=== PATIENT | male | born 1950 | race Caucasian/White ===

== ENCOUNTER → 2025-01-19 | Outpatient (CLI) | payer MEDICARE, SELFPAY ==
[2025-01-19 16:18] LABS: Cholesterol 186 mg/dL (<=200); Low Density Lipoprotein Calc. 99 mg/dL; Magnesium 1.9 mg/dL (1.5-2.2); Triglycerides 93 mg/dL; Very Low Density Lipoprotein 19 mg/dL (5-40); Vitamin B12 353 pg/mL (180-914); cholesterol:hdl ratio screen 2.70
[2025-01-23 12:09] LABS: ANTINUCLEAR ANTIBODIES DIRECT Positive (Negative); Anti-Chromatin <0.2 AI (0.0-0.9); Anti-Jo <0.2 AI (0.0-0.9); Anti-dsDNA Ab <1 IU/mL (0-9); SJOGREN'S Anti-SS-A test 0.2 AI (0.0-0.9); SJOGREN'S Anti-SS-B test 1.1 AI (0.0-0.9); Vitamin D 1,25-Dihydroxy 43.3 pg/mL (24.8-81.5)
[2025-01-26 13:08] LABS: Arsenic 7245 < 1 ug/L (0-9); Folate, Hemolysate Test 585.0 ng/mL (Not Estab.); Folate, RBC (Hct) Test 45.2 % (37.5-51.0); Folates, RBC Test 1294 ng/mL (>498); Lead, Blood 2.2 ug/dL (0.0-3.4); Mercury, Blood 85324 4.0 ug/L (0.0-14.9); VITAMIN B6 52.8 ug/L (3.4-65.2); Vitamin B1, Thiamine 128.8 nmol/L (66.5-200.0)
== END | disposition home or self-care (01) ==
LOC: MTLAB 11:21
PROVIDERS: PCP Family Medicine; Referring Provider Psychiatry & Neurology Neurology; Visit Provider Psychiatry & Neurology Neurology
DX: G62.9 Polyneuropathy, unspecified (principal); E78.5 Hyperlipidemia, unspecified
CPT/HCPCS: 36415; 80061; 82175; 82607; 82652; 82747; 83036; 83655; 83735; 83825; 83883; 84207; 84425; 85014; 86038; 86225; 86235

== ENCOUNTER → 2025-01-21 | Outpatient (CLI) | payer MEDICARE, SELFPAY ==
--- NOTE | 2025-01-21 12:28 | NEURO ---
NCS and/or EMG Patient Report Ordering Doctor: Cayden Flores DATE OF SERVICE: 01/21/25 Jose lower legs. He also reports weakness, primarily in dorsiflexion at the ankle bilaterally. Electrodiagnostic findings: Right peroneal and left peroneal motor nerve was not obtainable at the EDB. At the tibialis anterior, the right peroneal motor nerve demonstrates reduced amplitude bilaterally. Normal tibial motor response bilaterally. Sensory responses demonstrate a mild prolongation of the left sural nerve. H?reflexes prolonged bilaterally. Normal right tibial and left tibial F wave. Needle EMG testing was performed the lower limbs. Decreased recruitment pattern noted in the right tibialis anterior. 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 2. No electrodiagnostic evidence is noted for lumbosacral radiculopathy Multi Select Codes Neurology Neurology Interp Codes: 59756-89 Musc test done w/n test comp (interp) (2) and 17359-10 Nrv cndj test 11-12 studies (interp)
== END | disposition home or self-care (01) ==
LOC: PSN 08:18
PROVIDERS: PCP Family Medicine; Referring Provider Psychiatry & Neurology Neurology; Visit Provider Psychiatry & Neurology Neurology
DX: R29.898 Other symptoms and signs involving the musculoskeletal system (principal); R26.9 Unspecified abnormalities of gait and mobility; G62.9 Polyneuropathy, unspecified; M54.50 Low back pain, unspecified; M54.16 Radiculopathy, lumbar region
CPT/HCPCS: 95886; 95912

== ENCOUNTER → 2025-01-28 | Outpatient (CLI) | payer MEDICARE, SELFPAY ==
--- NOTE | 2025-01-28 15:20 | MRI_ITS ---
PROCEDURE: SPINE CERVICAL (ROUTINE) 01/28/2025 REASON FOR EXAM: ASSESS FOR CERVICAL MYELOPATHY AND RADICULOPATHY TECHNIQUE: Procedure Code: MRISP Modality: MR Procedure: SPINE CERVICAL (ROUTINE) Multiplanar and multisequence images were obtained without IV contrast administration. FINDINGS: Normal cervical vertebral body height. Subtle degenerative subluxation of C7 upon T1. There is no compression fracture. Degenerative marrow changes are present at C5-6. There is no Chiari deformity. At C2-3, there is no central or foraminal encroachment. At C3-4, severe right C4 foraminal stenosis from uncinate spurring with mild central canal narrowing. At C4-5 [id number] canal narrowing from disc osteophyte complex. Bilateral moderate foraminal stenosis worse on the right than the left from uncinate spur. At C5-6 [id number]-[id number] canal narrowing from disc osteophyte complex with severe bilateral C6 neural foraminal narrowing. At C6-7 mild canal narrowing and mild foraminal narrowing. At C7-T1 there is facet arthrosis with grade 1 subluxation. There is no cord compression or abnormal cord signal MRI/Spine Cervical (Routine) IMPRESSION: 1. Jvjh-nj-wytofpol canal narrowing at C4-5 and C5-6. 2. Severe right C4, bilateral moderate C5, severe bilateral C6 foraminal stenos is Reading [facility]
--- NOTE | 2025-01-28 15:20 | MRI_ITS ---
PROCEDURE: SPINE CERVICAL (ROUTINE) 01/28/2025 REASON FOR EXAM: ASSESS FOR CERVICAL MYELOPATHY AND RADICULOPATHY TECHNIQUE: Procedure Code: MRISP Modality: MR Procedure: SPINE CERVICAL (ROUTINE) Multiplanar and multisequence images were obtained without IV contrast administration. FINDINGS: Normal cervical vertebral body height. Subtle degenerative subluxation of C7 upon T1. There is no compression fracture. Degenerative marrow changes are present at C5-6. There is no Chiari deformity. At C2-3, there is no central or foraminal encroachment. At C3-4, severe right C4 foraminal stenosis from uncinate spurring with mild central canal narrowing. At C4-5 [id number]-[id number]-[id number] canal narrowing from disc osteophyte complex. Bilateral moderate foraminal stenosis worse on the right than the left from uncinate spur. At C5-6 fwdd-wr-[id number] canal narrowing from disc osteophyte complex with severe bilateral C6 neural foraminal narrowing. At C6-7 mild canal narrowing and mild foraminal narrowing. At C7-T1 there is facet arthrosis with grade 1 subluxation. There is no cord compression or abnormal cord signal MRI/Spine Cervical (Routine) IMPRESSION: 1. Lopk-jk-ccnfsvxo canal narrowing at C4-5 and C5-6. 2. Severe right C4, bilateral moderate C5, severe bilateral C6 foraminal stenos is Reading Location[facility]
--- NOTE | 2025-01-28 16:00 | MRI_ITS ---
PROCEDURE: SPINE LUMBAR (ROUTINE) 01/28/2025 REASON FOR EXAM: EVALUATE FOR SPINAL STENOSIS AND RADICULOPATHY TECHNIQUE: Procedure Code: MRISPL Modality: MR Procedure: SPINE LUMBAR (ROUTINE) COMPARISON: None. FINDINGS: Vertebrae: Preserved in height and signal. Alignment: Retrolisthesis L1 on L2 by 2 mm and L2 on L3 by 3 mm. Conus Medullaris: Unremarkable. L1-2: Disc desiccation. Disc bulge. Left frontal disc herniation measures 4 mm. Facet joint arthropathy with fluid effusion. Moderate bilateral foramina stenosis. Moderate canal stenosis. L2-3: Disc desiccation. Disc bulge. Facet joint arthropathy. Severe canal stenosis. Moderate bilateral foramina stenosis. L3-4: Disc bulge. Facet joint arthropathy. Ligamentum flavum hypertrophy. Mild bilateral foramina stenosis. Severe canal stenosis. L4-5: Disc bulge. Facet joint arthropathy. Ligamentum flavum hypertrophy. Severe canal stenosis. Moderate bilateral foramina stenosis. L5-S1: Disc desiccation. Disc bulge. Facet joints arthropathy. Severe bilateral foramina stenosis. Mass-effect upon the exiting bilateral L5 nerves. Mild canal stenosis. Sacrum: Unremarkable. MRI/Spine Lumbar (Routine) IMPRESSION: Multilevel degenerate changes predominantly for severe canal stenosis at L3-L4 and L4-L5. Severe bilateral foramina stenosis at L5-S1 with mass effect upon the exiting b ilateral L5 nerves. Reading Location: [facility]
--- NOTE | 2025-01-28 16:00 | MRI_ITS ---
PROCEDURE: SPINE LUMBAR (ROUTINE) 01/28/2025 REASON FOR EXAM: EVALUATE FOR SPINAL STENOSIS AND RADICULOPATHY TECHNIQUE: Procedure Code: MRISPL Modality: MR Procedure: SPINE LUMBAR (ROUTINE) COMPARISON: None. FINDINGS: Vertebrae: Preserved in height and signal. Alignment: Retrolisthesis L1 on L2 by 2 mm and L2 on L3 by 3 mm. Conus Medullaris: Unremarkable. L1-2: Disc desiccation. Disc bulge. Left frontal disc herniation measures 4 mm. Facet joint arthropathy with fluid effusion. Moderate bilateral foramina stenosis. Moderate canal stenosis. L2-3: Disc desiccation. Disc bulge. Facet joint arthropathy. Severe canal stenosis. Moderate bilateral foramina stenosis. L3-4: Disc bulge. Facet joint arthropathy. Ligamentum flavum hypertrophy. Mild bilateral foramina stenosis. Severe canal stenosis. L4-5: Disc bulge. Facet joint arthropathy. Ligamentum flavum hypertrophy. Severe canal stenosis. Moderate bilateral foramina stenosis. L5-S1: Disc desiccation. Disc bulge. Facet joints arthropathy. Severe bilateral foramina stenosis. Mass-effect upon the exiting bilateral L5 nerves. Mild canal stenosis. Sacrum: Unremarkable. MRI/Spine Lumbar (Routine) IMPRESSION: Multilevel degenerate changes predominantly for severe canal stenosis at L3-L4 and L4-L5. Severe bilateral foramina stenosis at L5-S1 with mass effect upon the exiting b ilateral L5 nerves. Reading Location[facility]
== END | disposition home or self-care (01) ==
LOC: MRI 14:56
PROVIDERS: PCP Family Medicine; Referring Provider Psychiatry & Neurology Neurology; Visit Provider Psychiatry & Neurology Neurology
DX: R20.2 Paresthesia of skin (principal); R26.9 Unspecified abnormalities of gait and mobility; R29.898 Other symptoms and signs involving the musculoskeletal system; M54.16 Radiculopathy, lumbar region; M54.50 Low back pain, unspecified
CPT/HCPCS: 72141; 72148

== ENCOUNTER → 2025-02-11 | Outpatient (CLI) | payer MEDICARE, SELFPAY ==
--- NOTE | 2025-02-11 14:21 | NEURO ---
NCS and/or EMG Patient Report Ordering Doctor: Cayden Flores DATE OF SERVICE: 02/11/25 Jose presents with complaints of numbness and tingling in both hands. Electrodiagnostic findings: Right median motor nerve demonstrates prolonged distal latency with normal amplitude and conduction velocity. Left median motor nerve demonstrates prolonged distal latency with normal amplitude and borderline reduced conduction velocity. Right ulnar motor nerve demonstrates normal distal latency and amplitude and reduced conduction velocity across the elbow when measured at the FDI and ADM. Left ulnar motor response measured at the FDI shows normal distal latency, amplitude and conduction velocity. Prolonged right ulnar F–wave. Needle EMG testing was performed upper limbs. All muscles tested showed no evidence of denervation with normal motor unit action potentials. Electrodiagnostic impression: This is an abnormal study. 1. Electrodiagnostic findings suggestive of bilateral median mononeuropathy. This is consistent with a mild right carpal tunnel syndrome and a moderate left carpal tunnel syndrome. 2. Electrodiagnostic findings suggestive of right sided ulnar neuropathy, consistent with a moderate right cubital tunnel syndrome. 3. No electrodiagnostic evidence is noted for cervical radiculopathy Multi Select Codes Neurology Neurology Interp Codes: 57474-28 Musc test done w/n test comp (interp) (2) and 82196-48 Nrv cndj test 11-12 studies (interp)
== END | disposition home or self-care (01) ==
LOC: PSN 07:06
PROVIDERS: PCP Family Medicine; Referring Provider Psychiatry & Neurology Neurology; Visit Provider Psychiatry & Neurology Neurology
DX: R20.2 Paresthesia of skin (principal)
CPT/HCPCS: 95886; 95913

== ENCOUNTER → 2025-03-17 | Outpatient (CLI) | payer MEDICARE, SELFPAY ==
[2025-03-19 16:09] LABS: Albumin 3.6 g/dL (2.9-4.4); Gamma Globulin 1.0 g/dL (0.4-1.8); Immunoglobulin A 305 mg/dL (61-437); Immunoglobulin G 1083 mg/dL (603-1613); Immunoglobulin M 73 mg/dL (15-143); PROEL- TOTAL PROTEIN 6.3 g/dL (6.0-8.5)
== END | disposition home or self-care (01) ==
LOC: MTLAB 09:36
PROVIDERS: PCP Family Medicine; Referring Provider Psychiatry & Neurology Neurology; Visit Provider Psychiatry & Neurology Neurology
DX: G62.9 Polyneuropathy, unspecified (principal)
CPT/HCPCS: 36415; 82784; 84165; 86334; 86335